=== PATIENT | female | born 1995 | race Caucasian/White ===

== ENCOUNTER 2017-10-03 12:37 | Emergency (ER) | payer MEDICAID ==
[~2017-10-03] VITALS: Ht 167.6 cm; Wt 73.3 kg
[~2017-10-03 12:37] MED LIST: NITR100C56 PO; PRENATAL VITAMINS; UNASOM; VITAMIN B 6
[2017-10-03 13:56] LABS: MICROSCOPIC AUTO
[2017-10-03] MEDS ORDERED: SODIUM CHLORIDE 0.9% 1,000ML IVBOLUS ONE (14:00)
[2017-10-03] MEDS ORDERED: ONDANSETRON 2MG/ML, 2ML IVPush ONE (14:00)
[2017-10-03] MEDS ORDERED: HYDROmorphone 1 MG/ML, 1ML IVPush PRN (14:00)
[2017-10-03] MEDS ORDERED: SODIUM CHLORIDE FLUSH 10ML SYR IVF ONE (14:00)
[2017-10-03 14:18] LABS: CULTURE INDICATED? YES
[2017-10-03] MEDS ORDERED: ONDANSETRON 2MG/ML, 2ML ONE (14:50)
[2017-10-03] MEDS ORDERED: HYDROmorphone 2 MG/ML, 1ML ONE (14:50)
[2017-10-03 15:15] LABS: BASOPHILS # (AUTO) 0.04 x10^3/uL (0-0.1); BASOPHILS % (AUTO) 1 % (0-1); EOSINOPHILS # (AUTO) 0.17 x10^3/uL (0-0.4); EOSINOPHILS % (AUTO) 2 % (1-7); LYMPHOCYTES # (AUTO) 2.63 x10^3/uL (1-3.4); LYMPHOCYTES % (AUTO) 34 % (22-44); MD NO; MEAN CORPUSCULAR HEMOGLOBIN 30.6 pg (27.0-34.8); MEAN CORPUSCULAR HGB CONC 33.9 g/dL (32.4-35.8); MEAN CORPUSCULAR VOLUME 90.4 fL (80-100); MEAN PLATELET VOLUME 8.5 fL (7.4-10.4); MONOCYTES # (AUTO) 0.64 x10^3/uL (0.2-0.8); MONOCYTES % (AUTO) 8 % (2-9); NEUTROPHILS # (AUTO) 4.23 x10^3/uL (1.8-6.8); NEUTROPHILS % (AUTO) 55 % (42-75); PLATELET COUNT 256 x10^3/uL (130-400); RED CELL DISTRIBUTION WIDTH 13.5 % (9.6-15.2)
[2017-10-03 15:24] LABS: ALBUMIN 4.3 g/dL (3.4-5.0); ANION GAP 9 mmol/L (5-15); CALCIUM 9.2 mg/dL (8.5-10.1); CHLORIDE 107 mmol/L (98-107)
[2017-10-03 15:30] LABS: ALANINE AMINOTRANSFERASE 16 U/L (12-78); ALKALINE PHOSPHATASE 59 U/L (45-117); BILIRUBIN,TOTAL 0.7 mg/dL (0.2-1.0); TOTAL PROTEIN 8.4 g/dL (6.4-8.2)
[2017-10-03 15:52] LABS: CLUE CELLS PRESENT (NONE SEEN); WET PREP WBCS FEW (FEW)
[2017-10-03] MEDS ORDERED: AZITHROMYCIN 500 MG TABLET ONE (16:12)
[2017-10-03] MEDS ORDERED: CEFTRIAXONE 250 MG ONE (16:12)
[2017-10-03] MEDS ORDERED: CEFTRIAXONE 250 MG IM ONE (16:30)
[2017-10-03] MEDS ORDERED: AZITHROMYCIN 500 MG TABLET PO ONE (16:30)
[2017-10-03 16:34] VITALS: BP 125/82
== END 2017-10-03 16:37 | disposition home or self-care (01) ==
LOC: ED 16:31
DX: N30.90 Cystitis, unspecified without hematuria (principal); N76.0 Acute vaginitis; B96.89 Other specified bacterial agents as the cause of diseases classified elsewhere; G89.29 Other chronic pain
CPT/HCPCS: 36415; 76830; 80053; 81001; 84703; 85025; 87070; 87086; 87205; 87210; 87491; 87591; 87808; 96361; 96372; 96374; 96375; 99285; J0696; J1170; J2405; J7030

== ENCOUNTER 2017-12-06 00:29 | Emergency (ER) | payer MEDICAID ==
[~2017-12-06] VITALS: Ht 170.2 cm; Wt 70.9 kg
[2017-12-06 00:36] VITALS: BP 107/64
== END 2017-12-06 02:06 | disposition left against medical advice (07) ==
LOC: ED 02:00
DX: R06.02 Shortness of breath (principal); R05 Cough; R09.89 Other specified symptoms and signs involving the circulatory and respiratory systems; Z53.21 Procedure and treatment not carried out due to patient leaving prior to being seen by health care provider

== ENCOUNTER 2018-01-08 07:52 | Emergency (ER) | payer MEDICAID ==
[~2018-01-08] VITALS: Ht 170.2 cm; Wt 70.8 kg
[2018-01-08 08:28] LABS: MICROSCOPIC AUTO
[2018-01-08] MEDS ORDERED: KETOROLAC 30 MG/1 ML IM ONE (08:30)
[2018-01-08] MEDS ORDERED: PROMETHAZINE 25 MG/ML, 1ML IM ONE (08:30)
[2018-01-08] MEDS ORDERED: KETOROLAC 30 MG/1 ML ONE (08:32)
[2018-01-08] MEDS ORDERED: PROMETHAZINE 25 MG/ML, 1ML ONE (08:32)
[2018-01-08 08:41] LABS: HCG UR SG 1.017 (1.003-1.030)
[2018-01-08 09:52] VITALS: BP 122/71
== END 2018-01-08 09:54 | disposition home or self-care (01) ==
LOC: ED 09:52
DX: J20.9 Acute bronchitis, unspecified (principal); G43.909 Migraine, unspecified, not intractable, without status migrainosus; N39.0 Urinary tract infection, site not specified; G89.29 Other chronic pain
CPT/HCPCS: 71046; 81001; 81025; 96372; 99285; J1885; J2550

== ENCOUNTER 2018-01-18 09:48 | Emergency (ER) | payer MEDICAID ==
[~2018-01-18] VITALS: Ht 170.2 cm; Wt 70.6 kg
[2018-01-18 09:51] VITALS: BP 119/84
[2018-01-18] MEDS ORDERED: ALBUTEROL/IPRATROPIUM 2.5MG/0.5MG, 3 ML NPPB ONE (10:30)
[2018-01-18] MEDS ORDERED: ALBUTEROL/IPRATROPIUM 2.5MG/0.5MG, 3 ML ONE (10:39)
== END 2018-01-18 10:58 | disposition home or self-care (01) ==
LOC: ED 10:50
DX: J18.9 Pneumonia, unspecified organism (principal); F17.200 Nicotine dependence, unspecified, uncomplicated
CPT/HCPCS: 71046; 94640; 99284

== ENCOUNTER 2018-02-28 07:28 | Emergency (ER) | payer MEDICAID ==
[~2018-02-28] VITALS: Ht 170.2 cm; Wt 72.0 kg
[2018-02-28] MEDS ORDERED: KETOROLAC 30 MG/1 ML IM ONE (08:00)
[2018-02-28] MEDS ORDERED: KETOROLAC 30 MG/1 ML ONE (08:04)
[2018-02-28 09:23] VITALS: BP 122/86
== END 2018-02-28 09:24 | disposition home or self-care (01) ==
LOC: ED 07:54
DX: S63.634A Sprain of interphalangeal joint of right ring finger, initial encounter (principal); S63.636A Sprain of interphalangeal joint of right little finger, initial encounter; G43.909 Migraine, unspecified, not intractable, without status migrainosus; F31.9 Bipolar disorder, unspecified; W51.XXXA Accidental striking against or bumped into by another person, initial encounter; Y93.89 Activity, other specified; Y99.8 Other external cause status; Y92.009 Unspecified place in unspecified non-institutional (private) residence as the place of occurrence of the external cause
CPT/HCPCS: 73110; 73130; 96372; 99284; J1885

== ENCOUNTER 2018-04-04 22:25 | Emergency (ER) | payer MEDICAID ==
[~2018-04-04] VITALS: Ht 170.2 cm; Wt 74.1 kg
[2018-04-04 22:27] VITALS: BP 168/89
[2018-04-04] MEDS ORDERED: ACETAMINOPHEN 325 MG TABLET ONE (23:52)
[2018-04-05] MEDS ORDERED: ACETAMINOPHEN 650 MG SUPP PR ONE
[2018-04-05 00:11] LABS: MICROSCOPIC AUTO
[2018-04-05 00:13] LABS: CULTURE INDICATED? YES
== END 2018-04-05 02:20 | disposition home or self-care (01) ==
LOC: ED 22:40
DX: O26.891 Other specified pregnancy related conditions, first trimester (principal); R10.9 Unspecified abdominal pain; G43.909 Migraine, unspecified, not intractable, without status migrainosus; Z3A.01 Less than 8 weeks gestation of pregnancy
CPT/HCPCS: 36415; 76801; 81001; 84702; 87086; 99285

== ENCOUNTER 2018-04-30 21:00 | Emergency (ER) | payer MEDICAID ==
[~2018-04-30] VITALS: Ht 170.2 cm; Wt 73.4 kg
[2018-04-30 21:07] VITALS: BP 121/66
== END 2018-04-30 22:00 | disposition home or self-care (01) ==
LOC: ED 21:20
DX: O26.891 Other specified pregnancy related conditions, first trimester (principal); Z3A.09 9 weeks gestation of pregnancy; F31.9 Bipolar disorder, unspecified; F41.1 Generalized anxiety disorder; G89.29 Other chronic pain; F17.200 Nicotine dependence, unspecified, uncomplicated; Z88.1 Allergy status to other antibiotic agents
CPT/HCPCS: 99281

== ENCOUNTER 2018-05-25 10:39 | Emergency (ER) | payer MEDICAID ==
[~2018-05-25] VITALS: Ht 170.2 cm; Wt 71.4 kg
[2018-05-25 11:22] VITALS: BP 100/65
[2018-05-25 12:22] LABS: BASOPHILS # (AUTO) 0.01 x10^3/uL (0-0.1); BASOPHILS % (AUTO) 0 % (0-1); EOSINOPHILS # (AUTO) 0.06 x10^3/uL (0-0.4); EOSINOPHILS % (AUTO) 1 % (1-7); LYMPHOCYTES # (AUTO) 1.32 x10^3/uL (1-3.4); LYMPHOCYTES % (AUTO) 10 % (22-44); MD NO; MEAN CORPUSCULAR HEMOGLOBIN 31.3 pg (27.0-34.8); MEAN CORPUSCULAR HGB CONC 34.4 g/dL (32.4-35.8); MEAN CORPUSCULAR VOLUME 91.1 fL (80-100); MEAN PLATELET VOLUME 8.4 fL (7.4-10.4); MONOCYTES # (AUTO) 0.88 x10^3/uL (0.2-0.8); MONOCYTES % (AUTO) 7 % (2-9); NEUTROPHILS # (AUTO) 11.24 x10^3/uL (1.8-6.8); NEUTROPHILS % (AUTO) 83 % (42-75); PLATELET COUNT 248 x10^3/uL (130-400); RED BLOOD COUNT 4.42 x10^6/uL (3.82-5.3); RED CELL DISTRIBUTION WIDTH 13.7 % (9.6-15.2)
[2018-05-25 12:32] LABS: ALBUMIN 3.9 g/dL (3.4-5.0); ANION GAP 7 mmol/L (5-15); CALCIUM 9.1 mg/dL (8.5-10.1); CHLORIDE 109 mmol/L (98-107); CREATININE 0.54 mg/dL (0.55-1.02)
[2018-05-25 13:00] LABS: RAPID INFLUENZA A Negative (Negative); RAPID INFLUENZA B Negative (Negative)
[2018-05-25 13:23] LABS: CULTURE INDICATED? YES; MICROSCOPIC INDICATED
== END 2018-05-25 14:29 | disposition home or self-care (01) ==
LOC: ED 12:21
DX: O23.41 Unspecified infection of urinary tract in pregnancy, first trimester (principal); J00 Acute nasopharyngitis [common cold]; B97.89 Other viral agents as the cause of diseases classified elsewhere; Z3A.13 13 weeks gestation of pregnancy
CPT/HCPCS: 36415; 71045; 76801; 80048; 81001; 82040; 84702; 85025; 87086; 87400; 99285

== ENCOUNTER 2018-06-22 12:54 | Emergency (ER) | payer MEDICAID ==
[~2018-06-22] VITALS: Ht 170.2 cm; Wt 75.7 kg
[2018-06-22] MEDS ORDERED: DIPHENHYDRAMINE 50 MG/ML, 1ML ONE (13:25)
[2018-06-22] MEDS ORDERED: METOCLOPRAMIDE 5 MG/ML, 2ML ONE (13:26)
[2018-06-22] MEDS ORDERED: METOCLOPRAMIDE 5 MG/ML, 2ML IVPush ONE (13:30)
[2018-06-22] MEDS ORDERED: DIPHENHYDRAMINE 50 MG/ML, 1ML IVPush ONE (13:30)
[2018-06-22] MEDS ORDERED: SODIUM CHLORIDE FLUSH 10ML SYR IVF ONE (13:30)
[2018-06-22 13:31] LABS: BASOPHILS # (AUTO) 0.03 x10^3/uL (0-0.1); BASOPHILS % (AUTO) 0 % (0-1); EOSINOPHILS # (AUTO) 0.13 x10^3/uL (0-0.4); EOSINOPHILS % (AUTO) 1 % (1-7); LYMPHOCYTES % (AUTO) 12 % (22-44); MD NO; MEAN CORPUSCULAR HEMOGLOBIN 31.2 pg (27.0-34.8); MEAN CORPUSCULAR HGB CONC 33.9 g/dL (32.4-35.8); MEAN CORPUSCULAR VOLUME 91.9 fL (80-100); MEAN PLATELET VOLUME 8.2 fL (7.4-10.4); MONOCYTES # (AUTO) 0.71 x10^3/uL (0.2-0.8); MONOCYTES % (AUTO) 5 % (2-9); NEUTROPHILS # (AUTO) 11.31 x10^3/uL (1.8-6.8); NEUTROPHILS % (AUTO) 82 % (42-75); PLATELET COUNT 295 x10^3/uL (130-400); RED BLOOD COUNT 4.36 x10^6/uL (3.82-5.3); RED CELL DISTRIBUTION WIDTH 13.9 % (9.6-15.2)
[2018-06-22 13:40] LABS: ALANINE AMINOTRANSFERASE 15 U/L (12-78); ALBUMIN 3.1 g/dL (3.4-5.0); ANION GAP 11 mmol/L (5-15); CALCIUM 8.2 mg/dL (8.5-10.1); CHLORIDE 110 mmol/L (98-107); CREATININE 0.44 mg/dL (0.55-1.02)
[2018-06-22 13:42] LABS: ALKALINE PHOSPHATASE 46 U/L (45-117); BILIRUBIN,TOTAL 0.2 mg/dL (0.2-1.0); TOTAL PROTEIN 7.2 g/dL (6.4-8.2)
[2018-06-22 14:05] LABS: MICROSCOPIC INDICATED
[2018-06-22 14:27] LABS: CULTURE INDICATED? YES
[2018-06-22 14:31] LABS: CLUE CELLS PRESENT (NONE SEEN)
[2018-06-22 14:32] LABS: WET PREP WBCS MODERATE (FEW)
[2018-06-22 15:57] VITALS: BP 109/68
== END 2018-06-22 15:59 | disposition home or self-care (01) ==
LOC: ED 15:50
DX: O23.592 Infection of other part of genital tract in pregnancy, second trimester (principal); R10.2 Pelvic and perineal pain; G43.909 Migraine, unspecified, not intractable, without status migrainosus; Z3A.17 17 weeks gestation of pregnancy
CPT/HCPCS: 36415; 76815; 76857; 80053; 81001; 85025; 87086; 87210; 87491; 87591; 87808; 96374; 96375; 99285; J1200; J2765

== ENCOUNTER 2018-07-10 10:08 | Emergency (ER) | payer MEDICAID ==
[~2018-07-10] VITALS: Ht 170.2 cm; Wt 77.8 kg
[2018-07-10 10:17] VITALS: BP 114/72
== END 2018-07-10 12:51 | disposition home or self-care (01) ==
LOC: ED 12:23
DX: O99.512 Diseases of the respiratory system complicating pregnancy, second trimester (principal); J20.8 Acute bronchitis due to other specified organisms; B34.9 Viral infection, unspecified; F31.9 Bipolar disorder, unspecified; Z3A.20 20 weeks gestation of pregnancy; Z87.42 Personal history of other diseases of the female genital tract
CPT/HCPCS: 93005; 99283; 99284

== ENCOUNTER 2019-03-19 23:06 | Emergency (ER) | payer MEDICAID ==
[~2019-03-19] VITALS: Ht 170.2 cm; Wt 82.5 kg
[2019-03-19 23:09] VITALS: BP 131/68
== END 2019-03-20 00:11 | disposition home or self-care (01) ==
LOC: ED 03-20
DX: S92.535A Nondisplaced fracture of distal phalanx of left lesser toe(s), initial encounter for closed fracture (principal); F31.9 Bipolar disorder, unspecified; X58.XXXA Exposure to other specified factors, initial encounter; Y93.89 Activity, other specified; Y92.488 Other paved roadways as the place of occurrence of the external cause; Y99.8 Other external cause status
CPT/HCPCS: 99283

== ENCOUNTER 2019-04-14 06:25 | Emergency (ER) | payer MEDICAID ==
[~2019-04-14] VITALS: Ht 170.2 cm; Wt 84.7 kg
[~2019-04-14 06:25] MED LIST changes: +ONDA4TAB7 PO; +PREN1TAB60 PO
[2019-04-14 06:33] VITALS: BP 105/43
--- NOTE | 2019-04-14 07:11 | NUR ---
Pt resting on gurney connected to NIBP cuff and continous pulse ox. Call light within reach. Provided warm blankets for comfort measures. NADN. Pt denies vaginal bleeding or spotting. Pt states, "I have bad back pain and feel light headed." NADN. Pt states, "I am 6 weeks and 6 days . 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 I have two living children currently who were full term." Pt denies vaginal bleeding, abdominal cramping, n/v/d, sob, cp, syncope, or trauma.
[2019-04-14 07:54] LABS: BASOPHILS # (AUTO) 0.07 x10^3/uL (0-0.1); BASOPHILS % (AUTO) 1 % (0-1); EOSINOPHILS # (AUTO) 0.14 x10^3/uL (0-0.4); EOSINOPHILS % (AUTO) 2 % (1-7); LYMPHOCYTES # (AUTO) 1.67 x10^3/uL (1-3.4); LYMPHOCYTES % (AUTO) 19 % (22-44); MD NO; MEAN CORPUSCULAR HEMOGLOBIN 30.7 pg (27.0-34.8); MEAN CORPUSCULAR HGB CONC 33.4 g/dL (32.4-35.8); MEAN PLATELET VOLUME 8.4 fL (7.4-10.4); MONOCYTES # (AUTO) 0.78 x10^3/uL (0.2-0.8); MONOCYTES % (AUTO) 9 % (2-9); NEUTROPHILS # (AUTO) 6.13 x10^3/uL (1.8-6.8); NEUTROPHILS % (AUTO) 70 % (42-75); PLATELET COUNT 269 x10^3/uL (130-400); RED CELL DISTRIBUTION WIDTH 13.9 % (9.6-15.2)
[2019-04-14 08:04] LABS: ALBUMIN 3.8 g/dL (3.4-5.0); ANION GAP 7 mmol/L (5-15); CALCIUM 8.7 mg/dL (8.5-10.1); CHLORIDE 112 mmol/L (98-107)
[2019-04-14 08:22] LABS: CREATININE 0.65 mg/dL (0.55-1.02)
[2019-04-14 09:15] LABS: MICROSCOPIC NOT IND
[2019-04-14] MEDS ORDERED: ACETAMINOPHEN 500 MG TABLET ONE (09:15)
[2019-04-14 09:17] LABS: CULTURE INDICATED? NO
[2019-04-14] MEDS ORDERED: ACETAMINOPHEN 500 MG TABLET PO ONE (09:30)
== END 2019-04-14 09:56 | disposition home or self-care (01) ==
LOC: ED 08:55
DX: O20.0 Threatened abortion (principal); R55 Syncope and collapse; F41.1 Generalized anxiety disorder; G43.909 Migraine, unspecified, not intractable, without status migrainosus; G89.29 Other chronic pain; M54.9 Dorsalgia, unspecified; F31.9 Bipolar disorder, unspecified
CPT/HCPCS: 36415; 76801; 80048; 81003; 82040; 84702; 85025; 93005; 99284

== ENCOUNTER 2019-05-28 04:27 | Inpatient (IN) | payer MEDICAID ==
[~2019-05-28] VITALS: Ht 170.2 cm; Wt 91.0 kg
[2019-05-28] MEDS ORDERED: ONDANSETRON 2MG/ML, 2ML IVPush ONE (05:00)
[2019-05-28] MEDS ORDERED: SODIUM CHLORIDE FLUSH 10ML SYR IVF ONE (05:00)
[2019-05-28] MEDS ORDERED: SODIUM CHLORIDE 0.9% 1,000ML IVBOLUS ONE (05:00)
--- NOTE | 2019-05-28 05:18 | NUR ---
pt state she woke up at around 0100 this morning with sharp pain in the left lower quadrant that radiates to the left flank with n/v. pt states pain 05/14. ultrasound at bedside.
[2019-05-28 05:20] LABS: BASOPHILS # (AUTO) 0.02 x10^3/uL (0-0.1); BASOPHILS % (AUTO) 0 % (0-1); EOSINOPHILS # (AUTO) 0.06 x10^3/uL (0-0.4); EOSINOPHILS % (AUTO) 0 % (1-7); LYMPHOCYTES # (AUTO) 1.28 x10^3/uL (1-3.4); LYMPHOCYTES % (AUTO) 8 % (22-44); MD NO; MEAN CORPUSCULAR HEMOGLOBIN 30.6 pg (27.0-34.8); MEAN CORPUSCULAR HGB CONC 33.2 g/dL (32.4-35.8); MEAN PLATELET VOLUME 8.3 fL (7.4-10.4); MONOCYTES % (AUTO) 5 % (2-9); NEUTROPHILS % (AUTO) 86 % (42-75); PLATELET COUNT 287 x10^3/uL (130-400); RED BLOOD COUNT 4.72 x10^6/uL (3.82-5.3); RED CELL DISTRIBUTION WIDTH 14.5 % (9.6-15.2)
--- NOTE | 2019-05-28 05:20 | NUR ---
report to stephen, rns
[2019-05-28] MEDS ORDERED: ONDANSETRON 2MG/ML, 2ML ONE (05:24)
[2019-05-28 05:31] LABS: ALBUMIN 4.3 g/dL (3.4-5.0); ANION GAP 10 mmol/L (5-15); CHLORIDE 107 mmol/L (98-107)
[2019-05-28 05:34] LABS: ALANINE AMINOTRANSFERASE 16 U/L (12-78); ALKALINE PHOSPHATASE 53 U/L (45-117); BILIRUBIN,TOTAL 0.4 mg/dL (0.2-1.0); CREATININE 0.67 mg/dL (0.55-1.02); TOTAL PROTEIN 8.3 g/dL (6.4-8.2)
--- NOTE | 2019-05-28 05:35 | NUR ---
PT MEDICATED PER OCT. AMBULATED TO BR WITH STEADY GAIT.
[2019-05-28 05:39] LABS: CULTURE INDICATED? YES; MICROSCOPIC INDICATED
[2019-05-28] MEDS ORDERED: ACETAMINOPHEN 325 MG TABLET PO ONE (06:00)
[2019-05-28] MEDS ORDERED: ACETAMINOPHEN 325 MG TABLET ONE (06:04)
--- NOTE | 2019-05-28 06:11 | NUR ---
PT REPORTS CONTINUED PAIN. MEDICATED PER OCT.
[2019-05-28] MEDS ORDERED: CEFTRIAXONE PMX 1GM/50ML 50 ML ONE (06:28)
[2019-05-28] MEDS ORDERED: CEFTRIAXONE PMX 1GM/50ML 50 ML IV ONE (06:30)
--- NOTE | 2019-05-28 06:36 | NUR ---
PT MEDICATED PER MAR WITH ABX. PER ER NO BLOOD CULTURES NECESSARY PRIOR TO IV ABX.
--- NOTE | 2019-05-28 07:02 | NUR ---
Report given to KEV Perry.
--- NOTE | 2019-05-28 07:04 | NUR ---
Bedside report from Jasmin RN, pt care assumed at this time. Pt in bed, given warm blankets for comfort, reports no other needs at this time, awaiting admit bed. ALESSANDRO.
[2019-05-28] MEDS ORDERED: hydrALAzine 20 MG/ML, 1ML IVPush PRN (09:30)
[2019-05-28] MEDS ORDERED: LABETALOL 5MG/ML, 20ML IVPush PRN (09:30)
[2019-05-28] MEDS ORDERED: ACETAMINOPHEN 325 MG TABLET PO PRN (09:30)
[2019-05-28] MEDS ORDERED: morphine SULFATE 10 MG/ML, 1ML IVPush PRN (09:30)
[2019-05-28] MEDS ORDERED: PROMETHAZINE 25 MG/ML, 1ML IM PRN (09:30)
[2019-05-28] MEDS ORDERED: ONDANSETRON 2MG/ML, 2ML IVPush PRN (09:30)
[2019-05-28] MEDS: CEFTRIAXONE PMX 1GM/50ML 50 ML IV SCH (10:34)
[2019-05-28] MEDS: SODIUM CHLORIDE 0.9% 1,000 ML IV SCH ×2 (10:34→20:12)
[2019-05-28] MEDS: MULTIVITAMINS WITH IRON TABLET PO SCH (10:35)
[2019-05-28 10:46] VITALS: BP 101/58
[2019-05-28 14:13] VITALS: BP 108/71
[2019-05-28] MEDS: POTASSIUM CHLORIDE 20 MEQ TAB.ER.PRT PO SCH (16:20)
[2019-05-28] MEDS ORDERED: POTASSIUM CHLORIDE 20 MEQ TAB.ER.PRT PO SCH (17:00)
[2019-05-28 18:22] LABS: HEMOGLOBIN A1C 5.3 % (4.2-6.3)
[2019-05-28 21:05] VITALS: BP 106/70
[2019-05-29 03:04] VITALS: BP 100/66
[2019-05-29] MEDS: SODIUM CHLORIDE 0.9% 1,000 ML IV SCH (03:32)
[2019-05-29 04:51] LABS: BASOPHILS # (AUTO) 0.08 x10^3/uL (0-0.1); BASOPHILS % (AUTO) 1 % (0-1); EOSINOPHILS # (AUTO) 0.17 x10^3/uL (0-0.4); EOSINOPHILS % (AUTO) 2 % (1-7); LYMPHOCYTES # (AUTO) 2.64 x10^3/uL (1-3.4); LYMPHOCYTES % (AUTO) 33 % (22-44); MD NO; MEAN CORPUSCULAR HEMOGLOBIN 31.2 pg (27.0-34.8); MEAN CORPUSCULAR HGB CONC 33.3 g/dL (32.4-35.8); MEAN CORPUSCULAR VOLUME 93.7 fL (80-100); MEAN PLATELET VOLUME 8.4 fL (7.4-10.4); MONOCYTES # (AUTO) 0.75 x10^3/uL (0.2-0.8); MONOCYTES % (AUTO) 10 % (2-9); NEUTROPHILS % (AUTO) 54 % (42-75); PLATELET COUNT 218 x10^3/uL (130-400); RED BLOOD COUNT 3.93 x10^6/uL (3.82-5.3); RED CELL DISTRIBUTION WIDTH 14.8 % (9.6-15.2)
[2019-05-29 05:02] LABS: ALANINE AMINOTRANSFERASE 13 U/L (12-78); ALBUMIN 3.1 g/dL (3.4-5.0); ANION GAP 5 mmol/L (5-15); CHLORIDE 112 mmol/L (98-107); CREATININE 0.48 mg/dL (0.55-1.02)
[2019-05-29 05:04] LABS: ALKALINE PHOSPHATASE 40 U/L (45-117); BILIRUBIN,TOTAL 0.1 mg/dL (0.2-1.0); TOTAL PROTEIN 6.2 g/dL (6.4-8.2)
[2019-05-29 07:12] VITALS: BP 106/64
[2019-05-29] MEDS: MULTIVITAMINS WITH IRON TABLET PO SCH (09:00)
[2019-05-29] MEDS: POTASSIUM CHLORIDE 20 MEQ TAB.ER.PRT PO SCH (09:00)
[2019-05-29] MEDS: MAGNESIUM OXIDE 400 MG TABLET PO SCH ×2 (09:00→20:17)
[2019-05-29] MEDS: CEFTRIAXONE PMX 1GM/50ML 50 ML IV SCH (09:03)
[2019-05-29] MEDS ORDERED: SODIUM CHLORIDE 0.9% 1,000 ML IV SCH (09:05)
[2019-05-29 13:52] VITALS: BP 114/59
[2019-05-29 18:20] LABS: HCG UR SG 1.015 (1.003-1.030)
[2019-05-29 20:01] VITALS: BP 102/63
[2019-05-30 02:14] VITALS: BP 108/67
[2019-05-30 05:42] LABS: BASOPHILS # (AUTO) 0.01 x10^3/uL (0-0.1); BASOPHILS % (AUTO) 0 % (0-1); EOSINOPHILS # (AUTO) 0.23 x10^3/uL (0-0.4); EOSINOPHILS % (AUTO) 2 % (1-7); LYMPHOCYTES # (AUTO) 2.82 x10^3/uL (1-3.4); LYMPHOCYTES % (AUTO) 27 % (22-44); MD NO; MEAN CORPUSCULAR HGB CONC 32.9 g/dL (32.4-35.8); MEAN CORPUSCULAR VOLUME 94.2 fL (80-100); MEAN PLATELET VOLUME 9.1 fL (7.4-10.4); MONOCYTES # (AUTO) 0.86 x10^3/uL (0.2-0.8); MONOCYTES % (AUTO) 8 % (2-9); NEUTROPHILS # (AUTO) 6.73 x10^3/uL (1.8-6.8); NEUTROPHILS % (AUTO) 63 % (42-75); PLATELET COUNT 242 x10^3/uL (130-400); RED BLOOD COUNT 4.05 x10^6/uL (3.82-5.3); RED CELL DISTRIBUTION WIDTH 14.6 % (9.6-15.2)
[2019-05-30 05:49] LABS: CHLORIDE 110 mmol/L (98-107)
[2019-05-30 05:56] LABS: ALANINE AMINOTRANSFERASE 13 U/L (12-78); ALBUMIN 3.5 g/dL (3.4-5.0); ALKALINE PHOSPHATASE 43 U/L (45-117); ANION GAP 7 mmol/L (5-15); BILIRUBIN,TOTAL 0.2 mg/dL (0.2-1.0); CALCIUM 8.8 mg/dL (8.5-10.1); CREATININE 0.47 mg/dL (0.55-1.02); TOTAL PROTEIN 6.9 g/dL (6.4-8.2)
[2019-05-30 08:46] VITALS: BP 114/59
[2019-05-30] MEDS: CEFTRIAXONE PMX 1GM/50ML 50 ML IV SCH (08:49)
[2019-05-30] MEDS: MULTIVITAMINS WITH IRON TABLET PO SCH (08:49)
[2019-05-30] MEDS: MAGNESIUM OXIDE 400 MG TABLET PO SCH (08:49)
[2019-05-30] MEDS ORDERED: CEFD300C37 PO (10:51)
[2019-05-30] MEDS ORDERED: MAGNESIUM OXIDE 400 MG TABLET PO SCH (11:00)
== END 2019-05-30 11:33 | disposition home or self-care (01) | DRG 832 ==
LOC: ED 05:06 → EDIP 07:00 → 3N 07:40
PROVIDERS: ADMIT Internal Medicine; ATTEND Internal Medicine
DX: O23.01 Infections of kidney in pregnancy, first trimester (principal); O26.831 Pregnancy related renal disease, first trimester; N13.6 Pyonephrosis; D17.71 Benign lipomatous neoplasm of kidney; E83.42 Hypomagnesemia; E87.6 Hypokalemia; R73.9 Hyperglycemia, unspecified; O26.891 Other specified pregnancy related conditions, first trimester; N28.89 Other specified disorders of kidney and ureter; O99.281 Endocrine, nutritional and metabolic diseases complicating pregnancy, first trimester; Z87.891 Personal history of nicotine dependence; Z3A.12 12 weeks gestation of pregnancy; Z88.1 Allergy status to other antibiotic agents; Z91.048 Other nonmedicinal substance allergy status
CPT/HCPCS: 36415; 74181; 76770; 76815; 80053; 81001; 81025; 83036; 83735; 85025; 87040; 87086; 96374; 96375; G0378; J0696; J2405; J2550; J7030